=== PATIENT | female | born 1935 | race Caucasian/White ===

== ENCOUNTER 2018-02-12 10:52 | Inpatient (IN) | payer OTHER, MEDICARE ==
--- NOTE | 2018-02-12 09:05 | GHP ---
[f rep st] HISTORY AND PHYSICAL DATE OF ADMISSION: 02/12/2018 CURRENT COMPLAINT: Left knee pain. HISTORY OF PRESENT ILLNESS: Ms. Tobar is an 83-year-old female who had previously undergone a left total knee replacement approximately a week and half ago. Subsequent x-rays revealed a distal femur fracture. She wishes to have surgery in order to resolve the problem. ALLERGIES: She is allergic to latex. CURRENT MEDICATIONS: 1. Aspirin. 2. Lasix. 3. Lisinopril. 4. Meloxicam. 5. Metoprolol. 6. Multivitamins. PRIOR MEDICAL PROBLEMS: 1. Arthritis. 2. Congestive heart failure. 3. High blood pressure. 4. Hyperglycemia. 5. Meniere disease. 6. Obesity. PHYSICAL EXAMINATION: HEENT: The patient's pupils are equal, round, and reactive to light. CHEST: Clear to auscultation. HEART: Regular rate and rhythm. ABDOMEN: Soft and nontender. She has rocky n with any type of motion to the left knee. X-ray exam reveals a bicondylar fracture of the distal femur, with loosening of the femoral component of the total knee. ASSESSMENT AND PLAN: Patient is status post left distal femur periprosthetic fracture. Our plan is to take her to the operating room to undergo an open reduction, internal fixation of her distal femur with replacement of her femoral component. /[id number]/MODL
[2018-02-12] MEDS ORDERED: PREGABALIN 150 MG CAP PO ONE ×2 (11:06→11:30)
[2018-02-12] MEDS ORDERED: ROPIVACAINE 0.2% 80 MG, EPINEPHrine 0.2 MG, KETOROLAC TROMETHAMINE 30 MG, morphINE 10 M... IU ONE (11:06)
[2018-02-12] MEDS ORDERED: ACETAMINOPHEN 500 MG TAB PO ONE ×2 (11:06→11:30)
[2018-02-12] MEDS ORDERED: TRANEXAMIC ACID 3,000 MG in NS (SYRINGE) 50 ML IRR ONE (11:06)
[2018-02-12] MEDS ORDERED: ceFAZolin 2 GM/DEXTROSE 100 ML IV ONE (11:06)
[2018-02-12] MEDS ORDERED: ceFAZolin 3 GM in D5W 100 ML IV ONE (11:30)
[2018-02-12] MEDS ORDERED: LR 1,000 ML IV ONE (12:04)
--- NOTE | 2018-02-12 12:25 | CPEKG ---
Heart Rate: 100 RR Interval: 600 QRSD Interval: 90 QT Interval: 348 QTC Interval: 449 QRS [place]: 96 T Wave [place]: 59 EKG Severity - ABNORMAL ECG - EKG Impression: ATRIAL FIBRILLATION, V-RATE 83-121 EKG Impression: RIGHT AXIS DEVIATION EKG Impression: LOW VOLTAGE THROUGHOUT EKG Impression: Agree with above Electronically Signed By: Onur Barnhart 12-Feb-2018 12:30:57
[2018-02-12] MEDS ORDERED: ONDANSETRON 4 MG/2 ML VIAL IVP PRN ×2 (12:37→18:47)
[2018-02-12] MEDS ORDERED: ONDANSETRON DISINTEGRATING 4 MG TAB PO PRN (12:37)
[2018-02-12] MEDS ORDERED: ACETAMINOPHEN 325 MG TAB PO PRN (12:37)
[2018-02-12] MEDS ORDERED: traMADol 50 MG TAB PO PRN (12:39)
[2018-02-12] MEDS ORDERED: MAGNESIUM HYDROXIDE 30 ML UDCUP PO PRN (12:39)
[2018-02-12] MEDS ORDERED: SIMETHICONE 80 MG TAB CHEW PO PRN (12:39)
[2018-02-12 13:00] LABS: INR 1.03 (0.83-1.16); PROTIME(PATIENT) 13.7 SEC (12.0-15.0)
[2018-02-12 13:20] LABS: PLATELET COUNT 348 10^3/uL (150-400)
[2018-02-12] MEDS ORDERED: POLYMYXIN B SULFATE 500,000 UNIT/10 ML SYR IRR ONE (13:26)
--- NOTE | 2018-02-12 13:31 | GHP ---
[f rep st] HISTORY AND PHYSICAL DATE OF ADMISSION: 02/12/2018 The patient is an 83-year-old female with a history of hypertension, obesity, likely atrial fibrillation and HAO, who underwent a total knee arthroplasty on February 01 in [place], [place] where she lives. She has been hospitalized since then. At some point she sustained a fall and was unable to bear weight. She was found to have a film on the showed a transverse distal femur fracture proximal to the knee arthroplasty and she is transferred today for operative repair. I am asked to see her in preoperative consultation. Notably, the patient received 2 mg of IV Ativan prior to transfer. When I speak to the patient, she is confused but alert and conversant. She denies current chest pain or a history of chest pain. She states there were no postoperative cardiopulmonary complications following her knee arthroplasty. She denies a history of VTE. She has not had fever, chills, or cough. She states that it sounds like atrial fibrillation is not a new thing for her, although again, her level of moderate confusion does suggest there could be some issues with this statement. She denies a history of exertional chest pain or lower extremity edema. REVIEW OF SYSTEMS: A complete 10-point review of systems conducted negative except as noted in the HPI. PAST MEDICAL HISTORY: Hypertension, osteoarthritis, obstructive sleep apnea, morbid obesity, likely atrial fibrillation. ALLERGIES: Latex, natural rubber. MEDICATIONS ON TRANSFER: Tylenol, aspirin, ibuprofen, lisinopril, oxycodone, aspirin, furosemide, milk of magnesia, Toprol-XL 25, simethicone, tramadol. SOCIAL HISTORY: Lives in [place], [place]. Nonsmoker. FAMILY HISTORY: Parents . PHYSICAL EXAM: VITAL SIGNS: Pulse 100, blood pressure 140/76, breathing 18 times a minute. 98% on 2 L. GENERAL: No acute distress. Confused. HEENT: Sclerae anicteric. Oropharynx clear. Mucous membranes moist. NECK: Supple without lymphadenopathy or JVD. LUNGS: Clear to auscultation anterolaterally. A posterior exam was not done. HEART: S1, S2. Irregularly irregular without systolic murmur. ABDOMEN: Nontender, nondistended. EXTREMITIES: Her left lower extremity is in a knee immobilizer, I did not undo it. There is a significant amount of ecchymoses around her ankle. Her right lower extremity shows trace edema bilaterally. Calves are nontender. SKIN: Without rash other than the bruising I mentioned. NEUROLOGIC: Nonfocal. EKG interpreted by me shows AFib at about 100 with normal axis and intervals. There are no ST or T-wave changes. There is no prior for comparison. I have discussed the case with Dr. Rc Thibodeaux and Dr. Janet Rinaldi. ASSESSMENT AND PLAN: An 83-year-old female with a periprosthetic femur fracture with urgent need for operative repair. 1. Preoperative cardiac evaluation. The patient does not have an active cardiac condition. I believe that this is likely old atrial fibrillation. Her rate is controlled on her current dose of beta arin. Her EKG without ST or T -wave changes. She does not note chest pain. a. I think the patient may proceed toward the operating room without further workup or intervention. I believe her risk is moderate. b. I think the patient is possibly a bit volume overloaded and would be judicious with intravenous fluids in the operating room, but certainly she needs to be supported hemodynamically. 2. Periprosthetic fracture. This patient is high risk for venous thromboembolism. Recommend starting low-molecular heparin venous thromboembolism prophylaxis. 3. Atrial fibrillation. I will attempt to gain greater records during this hospitalization to figure out if the patient is actually in atrial fibrillation. I would warrant given her age and hypertension that she likely would be a candidate for systemic anticoagulation for stroke prophylaxis. For now, we will continue with low molecular heparin and her beta arin. I have also ordered an echocardiogram. 4. Obstructive sleep apnea. I will provide her with at least nocturnal oxygen and continuous positive airway pressure if available. 5. Delirium. Would use caution with large doses of benzodiazepines, would actually not give her benzodiazepines at all. 6. Pain. I will defer pain management postoperatively to Orthopedics at least tonight, and we will see her tomorrow. DISPOSITION: Inpatient status. Hospital Medicine will assume the care of this patient along with Orthopedics as a inside solar sales consultant. /[id number]/MODL MTDD
--- NOTE | 2018-02-12 14:16 | PDANEPAE ---
ANE History of Present Illness Patient presents for L knee TKA revision ANE Past Medical History - Cardiovascular History Hx Hypertension: Yes Hx Arrhythmias: Yes Hx Chest Pain: Yes Hx Coronary Artery / Peripheral Vascular Disease: Yes Hx CHF / Valvular Disease: Yes Hx Palpitations: No - Pulmonary History Hx COPD: No Hx Asthma/Reactive Airway Disease: No Hx Recent Upper Respiratory Infection: No Hx Oxygen in Use at Home: Yes O2 in Use at Home (L/minute): 3 Hx Sleep Apnea: Yes Pulmonary History Comment: uses o2 with cpap - Neurologic History Hx Cerebrovascular Accident: No Hx Seizures: No Hx Dementia: No - Endocrine History Hx Diabetes: Yes - Renal History Hx Renal Disorders: No - Liver History Hx Hepatic Disorders: No - Neurological & Psychiatric Hx Hx Neurological and Psychiatric Disorders: No - Cancer History Hx Cancer: No - Congenital Disorder History Hx Congenital Disorders: No - GI History Hx Gastrointestinal Disorders: No - Other Health History Other Health History: poor historian - Chronic Pain History Chronic Pain: No - Surgical History Prior Surgeries: left tka 02/01/18. poor historian. tonsilectomy as child ANE Review of Systems Review of Systems: - Exercise capacity METS (RN): 1 METS ANE Patient History - Allergies Allergies/Adverse Reactions: Latex, Natural Rubber Allergy (Verified 02/12/18 08:58) - Home Medications Home Medications: Acetaminophen [Tylenol 325mg (*)] 650 mg PO Q4HRS PRN 02/12/18 [Last Taken Unknown] Aspirin [Aspirin 325 mg (*)] 325 mg PO DAILY 02/12/18 [Last Taken Unknown] Docusate Sodium [Colace 100 MG (*)] 100 mg PO BID 02/12/18 [Last Taken Unknown] Furosemide [Lasix 40 MG (*)] 40 mg PO DAILY 02/12/18 [Last Taken Unknown] Ibuprofen [Motrin (*)] 600 mg PO Q6HRS PRN 02/12/18 [Last Taken Unknown] Lisinopril [Zestril 40 mg (*)] 40 mg PO DAILY 02/12/18 [Last Taken Unknown] Magnesium Hydroxide [Milk of Magnesia] 30 ml PO BID PRN 02/12/18 [Last Taken Unknown] Metoprolol Succinate Xr [Toprol Xl 25 mg (*)] 25 mg PO DAILY 02/12/18 [Last Taken Unknown] Simethicone [Gas Relief] 80 mg PO QID PRN 02/12/18 [Last Taken Unknown] oxyCODONE IR [Oxycodone Ir (*)] 5 mg PO Q6HRS PRN 02/12/18 [Last Taken Unknown] traMADol [Ultram 50 mg (*)] 50 mg PO Q6HRS PRN 02/12/18 [Last Taken Unknown] - NPO status NPO Status: no food or drink >8 hours NPO Since - Liquids (Date): 02/12/18 NPO Since - Liquids (Time): 00:00 NPO Since - Solids (Date): 02/12/18 NPO Since - Solids (Time): 00:00 - Smoking Hx Smoking Status: Never smoked ANE Labs/Vital Signs - Labs Result Diagrams: 02/12/18 12:56 02/12/18 12:22 - Vital Signs Blood Pressure: 156/70 Heart Rate: 108 Respiratory Rate: 20 O2 Sat (%): 97 Height: 172.72 cm Weight: 127 kg ANE Physical Exam - Airway Neck exam: decreased ROM Mallampati Score: Unable to assesss Mouth exam: dentures - Pulmonary Pulmonary: reduced air movement, bronchial breath sounds - Cardiovascular Cardiovascular: irregularly irregular - ASA Status ASA Status: IV ANE Anesthesia Plan Anesthesia Plan: general endotracheal anesthesia Lines/Monitors: arterial line Specialized Airway: video laryngoscope (RBA discussed, consents obtained from son (ROA) via telephone)
[2018-02-12] MEDS ORDERED: fentaNYL 100 MCG/2 ML INJ ONE ×2 (14:31→19:49)
[2018-02-12] MEDS ORDERED: DEXAMETHASONE 4 MG/ML VIAL ONE ×2 (14:32→16:01)
[2018-02-12] MEDS ORDERED: ONDANSETRON 4 MG/2 ML VIAL ONE (14:32)
[2018-02-12] MEDS ORDERED: PROPOFOL 200 MG/20 ML VIAL ONE (14:32)
[2018-02-12] MEDS ORDERED: CALCIUM CHLORIDE 1 GM/10 ML INJ ONE (14:49)
[2018-02-12] MEDS ORDERED: THROMBIN (BOVINE) 5,000 UNIT VIAL TP ONE (14:49)
--- NOTE | 2018-02-12 15:02 | PDHPUP ---
History & Physical Update H&P update statement: This history and physical update is based on an assessment of the patient which was completed after admission or registration (within 24 hours), but prior to the surgery/procedure. H&P update: H&P reviewed & patient examined, no change in patient's condition since H&P completed
[2018-02-12] MEDS ORDERED: ROCURONIUM 50 MG/5 ML VIAL ONE ×2 (16:01→16:23)
[2018-02-12] MEDS ORDERED: HYDROmorphONE/DILAUDID 2 MG/ML INJ ONE (16:01)
[2018-02-12] MEDS ORDERED: METOPROLOL TARTRATE 5 MG/5 ML INJ ONE (16:02)
[2018-02-12 16:16] LABS: PLATELET COUNT 347 10^3/uL (150-400)
--- NOTE | 2018-02-12 16:19 | PDMN ---
Medical Necessity Medical necessity: [facility] IP only surgery; cpt 02945 Femur Fx ORIF
--- NOTE | 2018-02-12 16:27 | ECHO ---
[email or web address] [address] Main: [phone] Fax: Transthoracic Echocardiogram Name: BABAR BASS MR#: [id number] Study Date: 02/12/2018 Study Time: 02:37 PM Date of : 1935 Age: 83 year(s) Height: 172.7 cm (68 in.) Weight: 126.55 kg (279 lb.) BSA: 2.35 m2 Gender: Female Examination: Echo Indication: Atrial Fibrillation Image Quality: Technically Difficult Contrast: Requested by: Corby Gabriel BP: 95 mmHg/73 mmHg Heart Rate: Rhythm: Indication: Atrial Fibrillation Procedure Staff Miniature Set Constructor: Roxie Askew RDCS Reading Physician: Edgar Browning MD Requesting Provider: Conclusions: Normal size left ventricle. No LV hypertrophy. Normal global systolic LV function. The ejection fraction is estimated to be 60-65 %. Mildly dilated right ventricle. The left atrium is mildly dilated. The right atrium is mildly dilated. Moderate mitral valve leaflet calcification is present. Mild to moderate mitral regurgitation. Trivial aortic valve regurgitation. Moderate to severe tricuspid valve regurgitation. RVSP is 44mmHG.. "D" shaped interventricular septum consistent with RV pressure/volume overlaod. Measurements: Chambers Valvular Assessment AV/MV Valvular Assessment TV/PV Normal Normal Normal Name Value Range Name Value Range Name Value Range Ao Leora (MM): 3.1 cm (2.2 cm-3.7 AV meanP mmHg ( - ) TR Vmax: 3.12 mm/s ( - ) cm) MV E Vmax: 1.23 m/s ( - ) TR PGmax: 39 mmHg ( - ) IVSd (2D): 1.0 cm (0.6 cm-1.1 syst. PAP: 44 mmHg ( - ) cm) LVDd (2D): 4.9 cm (3.9 cm-5.3 cm) LVDs (2D): 2.6 cm (2.1 cm-4 cm) LVPWd (2D): 1.1 cm ( - ) LVEF (2D): 78 (>=54 %) EF Range: 60-65 % Patient: BABAR BASS Study Date: 02/12/2018 Page 1 of 2 02:37 PM Continued Measurements: Valvular Assessment TV/PV Name Value CVP (est.): 5 mmHg Findings: Left Ventricle: Normal size left ventricle. No LV hypertrophy. Normal global systolic LV function. The ejection fraction is estimated to be 60-65 %. No regional wall motion abnormality. Right Ventricle: Mildly dilated right ventricle. Left Atrium: The left atrium is mildly dilated. Right Atrium: The right atrium is mildly dilated. Mitral Valve: Moderate mitral valve leaflet calcification is present. Mild to moderate mitral regurgitation. Aortic Valve: The aortic valve is normal in appearance and function. Trivial aortic valve regurgitation. Tricuspid Valve: The tricuspid valve is normal in appearance and function. Moderate to severe tricuspid valve regurgitation. The pulmonary artery pressure is mildly increased. RVSP is 44mmHG.. Pulmonic Valve: The pulmonic valve is normal in appearance and function. Aorta: The aorta is normal. Pericardium: No pericardial effusion. There is pericardial fat. Exam Comments: Echo done in pre op (heading to surgery at the time).. (No Signature Object) Patient: BABAR BASS Study Date: 02/12/2018 Page 2 of 2 02:37 PM D:_[id number]
[2018-02-12 17:39] LABS: PLATELET COUNT 338 10^3/uL (150-400)
[2018-02-12 17:51] LABS: INR 1.11 (0.83-1.16); PROTIME(PATIENT) 14.5 SEC (12.0-15.0)
[2018-02-12] MEDS ORDERED: ROPIVACAINE HCL 150 MG/30 ML INJ ONE (17:53)
[2018-02-12] MEDS ORDERED: ALBUMIN 5% 250 ML BOTTLE IV ONE (18:19)
[2018-02-12] MEDS ORDERED: BACITRACIN 50,000 UNITS/10 ML SYR IRR ONE (18:45)
[2018-02-12] MEDS ORDERED: SUGAMMADEX SODIUM 200 MG/2 ML VIAL IVP ONE (18:46)
[2018-02-12] MEDS ORDERED: LR 500 ML IV PRN (18:47)
[2018-02-12] MEDS ORDERED: NALOXONE HCL 0.4 MG/ML INJ IVP PRN (18:47)
[2018-02-12 18:52] LABS: INR 1.25 (0.83-1.16); PROTIME(PATIENT) 15.9 SEC (12.0-15.0)
[2018-02-12] MEDS ORDERED: ceFAZolin 1 GM VIAL ONE (18:52)
[2018-02-12 19:13] LABS: PLATELET COUNT 259 10^3/uL (150-400)
[2018-02-12] MEDS ORDERED: CYCLOBENZAPRINE 10 MG TAB PO PRN (19:17)
[2018-02-12] MEDS ORDERED: PROMETHAZINE HCL 25 MG/ML INJ IVP PRN (19:17)
[2018-02-12] MEDS ORDERED: oxyCODONE IR 5 MG TAB PO PRN (19:17)
[2018-02-12] MEDS ORDERED: DIPHENOXYLATE/ATROPINE LOMOTIL 1 TAB PO PRN (19:17)
[2018-02-12] MEDS ORDERED: PROMETHAZINE HCL 25 MG SUPPR PR PRN (19:17)
[2018-02-12] MEDS ORDERED: METOCLOPRAMIDE 10 MG/2 ML VIAL IVP PRN (19:17)
[2018-02-12] MEDS ORDERED: diphenhydrAMINE 25 MG CAP PO PRN (19:17)
[2018-02-12] MEDS ORDERED: POLYETHYLENE GLYCOL 3350 17 GM PKT PO PRN (19:17)
[2018-02-12] MEDS ORDERED: LACTULOSE 20 GM/30 ML UDCUP PO PRN (19:17)
[2018-02-12] MEDS ORDERED: TEMAZEPAM 15 MG CAP PO PRN (19:17)
[2018-02-12] MEDS ORDERED: BISACODYL 10 MG SUPP PR PRN (19:17)
--- NOTE | 2018-02-12 19:17 | POSTOPPROG ---
Post Op Note Date of Operation: 02/12/18 Surgeon: Janet Rinaldi Senior Business Development Analyst: [employer]train Anesthesia: GET(General Endotracheal), Other (Specify) Pre-op Diagnosis: l knee periprosthetic fracture with patellar tendon avulsion Procedure: l knee MARCO ANTONIO with distal femur replacement and patellar tendon repair Inf/Abcess present in the surg proc area at time of surgery?: No Depth: Deep Incisional (Fascial) EBL: 500-1000
[2018-02-12] MEDS ORDERED: LR 1,000 ML IV SCH (19:30)
--- NOTE | 2018-02-12 19:42 | POSTANESTH ---
Post Anesthetic Evaluation Cardiovascular Status: Similar to Pre-Op Cond Respiratory Status: Tx Decrease in SpO2 Level of Consciousness/Mental Status: Alert and Oriented, Other, See Comment Pain Control: Adequate, Prn Tx Ordered Nausea/Vomiting Control: Adequate, Prn Tx Ordered Complications Possibly Related to Anesthesia: None Noted (Confused in PACU as she was in Pre-op. Administering CPAP in PACU to recruit lungs.)
[2018-02-12] MEDS: fentaNYL 100 MCG/2 ML INJ IVP PRN ×2 (19:52→20:10)
--- NOTE | 2018-02-12 20:08 | GOP ---
[f rep st] OPERATIVE REPORT DATE OF OPERATION: 02/12/2018 SURGEON: Janet Rinaldi MD ANTENNA DESIGN ENGINEER: Dean Lance, CSFA, LSA, whose presence was medically necessary. ANESTHESIA: Endotracheal intubation plus femoral nerve block per surgeon's request. PREOPERATIVE DIAGNOSIS: Distal right femur periprosthetic fracture. POSTOPERATIVE DIAGNOSIS: Distal right femur periprosthetic fracture with patellar tendon avulsion. PROCEDURE PERFORMED: Right knee removal of hardware with hinged distal femoral replacement as well a s a patellar tendon repair. FINDINGS: INDICATIONS: This is an 83-year-old female, who had previously undergone a left total knee replaceme nt approximately a week and a half ago. Had difficulty with rehab, complained of pain into her dista l thigh. She underwent an x-ray and was noted to have a fracture through both of the femoral condyles as well as displacement of the femoral component. It was decided to bring her to the operating room in order to facilitate repair. DESCRIPTION OF PROCEDURE: The patient brought to the operating room after the left side had been huong ntified as the correct side by the patient, nurse and physician. Once in the operating room, she was placed under general anesthesia using endotracheal intubation. Once asleep, tourniquet was placed ar ound the upper portion of the left thigh, and the left lower extremity sterilely prepped and draped i n usual fashion with /solution. Once prepped and draped, the limb was exsanguinated, tourniquet in flated to 250 mmHg. The victorina were removed from the skin, the skin was then opened and dissected w ith sutures removed. Dissection down upon the extensor mechanism revealed an opening into the knee c avity suggesting some injury to the extensor mechanism. Further exploration revealed the patellar te ndon had avulsed off the tibial tubercle. The suture was removed from around the extensor mechanism. Patella was everted in order to gain access into the knee. The bony fragments were noted. The fem oral component was noted to be loose against the bone. The polyethylene liner associated with total k nee replacement was removed and the femoral component was removed, noted to have a very small amount of cortical bone associated with the medial and lateral femoral condyles with a great deal of comminu tion at the intermedullary portion of the distal femur. It was decided at that point to abandon open reduction internal fixation and do a distal femoral replacement instead. Therefore measurements wer e taken in order to gain fresh bone at the distal portion of the femur. The bone was cut and an area 76 mm from where the articular surface of the femur would have been, an oscillating saw was used to remove that portion of the femur and the bone was removed. The quality of the bone was noted to be e xtremely poor. Once removed, reamers were used up to a 15 mm into the intramedullary cavity of the f emur. Trial reduction was performed, noted to have good length and good stability of the femoral com ponent. Attention turned to the tibia and the tibial component was removed. Once removed, tibial cu tting guide was put in place and an intramedullary reamer was passed into the tibia and then a keel p unch passed through a guide. Once in place, a trial reduction was performed, with the trial femur, t ibia, and hinged trial. The patient was noted able to achieve full extension and good stability. Th erefore, the trials were all removed. The components were able to be put together on the back table. Cement was mixed as the bone was being thoroughly irrigated with pulsatile lavage. Once the cement was doughy, it was placed on the proximal portion of the tibia with a size small tibial base plate a ttached to a 40 mm stem stitch bonding machine tender helper. This was placed into the bone with excess bone removed using [place] elevator. Cement was then placed in the femoral canal with a standard left 65 mm distal femoral com ponent from [employer], put in place with a 15 mm x 127 mm stem put into place. Placed in the bone, its external rotation was set based on markers that have been placed during the trial. Once the cement had hardened, a 10 mm tibial insert was put into place and then the hinged modular rotating component was put into place as well as the neutral bumper and hinge axle. Once in place, the knee was able t o achieve full extension. Had good varus valgus stability. The shelf of the medial and lateral femo ral condyles were left alone free-floating on either side of the femoral component. The wound was th oroughly irrigated with antibiotic solution and then irrigated with a Betadine solution. Joint cockt ail was injected around the posterior capsule and the periosteum. Tourniquet was released at 120 min utes. Bleeding was controlled using electrocautery. The extensor mechanism was closed using 0 Ethib ond suture in a breqqm-yy-wydae type stitch to close the extensor mechanism until reaching the patell ar tendon. The patellar tendon sheath was closed with #2 FiberWire, woven in 2 separate strands into the medial and lateral portion of the patellar tendon using a locking whipstitch. Once completed, t he tibial tubercle was roughened. Two sets of 5.5 mm Arthrex screw-in anchors were put into place. With the suture from the anchors and the suture from the locking whipstitch combined in order to pull , place tension on the patellar tendon and apply it onto the bone. Tranexamic acid was irrigated int o the joint as well as the surface. Plasma gel was placed on the area around the patellar tendon rep air. 0 Vicryl suture was used to close the subcutaneous layers, and 0 Prolene suture was used in a v ertical mattress type stitch in order to keep the skin closed. Once completed the wound was dressed with Xeroform, 4 x 4, Kerlix. Leg was completely undraped in the operating room, tourniquet removed from the thigh and an Robles wrap placed around the knee. The patient was then woken up, extubated, transferred onto a stretcher, and sent to recovery room in good condition. TOURNIQUET TIME: 120 minutes. /[id number]/MODL
[2018-02-12] MEDS: DOCUSATE SODIUM 100 MG CAP PO SCH (22:15)
[2018-02-12] MEDS: ACETAMINOPHEN 325 MG TAB PO SCH (22:16)
[2018-02-12] MEDS: SENNOSIDES/DOCUSATE SODIUM TAB PO SCH (22:16)
[2018-02-12] MEDS: FAMOTIDINE 20 MG TAB PO SCH (22:16)
[2018-02-12] MEDS: KETOROLAC 15 MG/1 ML SDV IVP SCH (23:57)
[2018-02-12] MEDS: ceFAZolin 2 GM/DEXTROSE 100 ML IV SCH (23:58)
[2018-02-12] MEDS: traMADol 50 MG TAB PO SCH (23:59)
[2018-02-13 05:53] LABS: PLATELET COUNT 241 10^3/uL (150-400)
[2018-02-13] MEDS: traMADol 50 MG TAB PO SCH ×4 (06:16→23:59)
[2018-02-13] MEDS: ACETAMINOPHEN 325 MG TAB PO SCH ×3 (06:20→17:30)
[2018-02-13] MEDS: KETOROLAC 15 MG/1 ML SDV IVP SCH ×3 (06:20→17:31)
[2018-02-13] MEDS ORDERED: oxyCODONE IR 5 MG TAB PO PRN (08:28)
[2018-02-13] MEDS ORDERED: METOPROLOL SUCCINATE XR 25 MG TAB PO SCH ×2 (09:00)
[2018-02-13] MEDS ORDERED: RIVAROXABAN 10 MG TAB PO SCH (09:00)
[2018-02-13] MEDS ORDERED: IOPAMIDOL (ISOVUE 370) 100 ML BTL IV ONE (09:49)
[2018-02-13] MEDS: SENNOSIDES/DOCUSATE SODIUM TAB PO SCH ×2 (10:00→20:18)
[2018-02-13] MEDS: ENOXAPARIN 40 MG/0.4 ML SYR SC SCH (10:00)
[2018-02-13] MEDS: FAMOTIDINE 20 MG TAB PO SCH ×2 (10:00→20:18)
[2018-02-13] MEDS: DOCUSATE SODIUM 100 MG CAP PO SCH ×2 (10:00→20:18)
[2018-02-13] MEDS: FUROSEMIDE 40 MG TAB PO SCH (10:00)
[2018-02-13] MEDS ORDERED: CEPACOL LOZENGE PO PRN (10:12)
[2018-02-13] MEDS ORDERED: CALCIUM CARBONATE 500 MG CHEWABLE TAB PO PRN (10:12)
[2018-02-13] MEDS: METOPROLOL SUCCINATE XR 25 MG TAB PO SCH (11:17)
--- NOTE | 2018-02-13 14:04 | SOAPPROG ---
SOAP Progress Note Assessment/Plan: Assessment: Plan: Subjective: states she's sore but better than pre-op dressing C&D with foot grossly NVI post-op xrays look good cont pain meds/abx PWB on LLE but no bending of the knee at all Objective: Vital Signs Temp Pulse Resp BP Pulse Ox 36.6 C 100 20 99/52 L 96 02/13/18 12:00 02/13/18 12:00 02/13/18 12:00 02/13/18 12:00 02/13/18 12:00 Laboratory Results 02/13/18 05:45 02/13/18 05:45 02/12/18 02/13/18 02/14/18 05:59 05:59 05:59 Intake Total 2270 640 Output Total 350 Balance 1920 640 PT 15.9 SEC (12.0-15.0) H 02/12/18 18:30 INR 1.25 (0.83-1.16) H 02/12/18 18:30 ICD10 Worksheet Patient Problems: Problems Problem Status Onset Atrial fibrillation Acute Effie-prosthetic femoral shaft fracture Acute - ICD10 Problem Qualifiers (1) Effie-prosthetic femoral shaft fracture
--- NOTE | 2018-02-13 15:54 | HOSPPROG ---
Hospitalist Progress Note Assessment/Plan: Assessment: 83-year-old female presents for fracture adjacent to prosthesis of recently repaired knee complicated by atrial fibrillation with acute rapid ventricular response Plan: 1. Atrial fibrillation. Acute rapid ventricular response on presentation, potentially unreliable history provided by patient and further outside records need to be obtained determine the chronicity of her AFib -continue on metoprolol succinate 25 daily, monitor rate on telemetry -hold on systemic anticoagulation immediately postoperatively, will be discharged on full-dose systemic anticoagulation if she does not experience any postoperative bleeding 2. Suspected chronic diastolic congestive heart failure. Chest x-ray demonstrating some interstitial markings indicative of pulmonary vascular congestion and cardiomegaly (personally interpreted), but not overt CHF -echocardiogram demonstrating ejection fraction 60-65%, [id number] mitral regurgitation, RVSP of 44 -continue home dosage of Lasix -holding RAMÍREZ-inhibitor given marginal blood pressures -obtaining CT angiogram to ensure that patient's elevated RVSP is not secondary to a PE 3. Acute blood loss anemia. Decline in hemoglobin to 7.3 with preoperative hemoglobin greater than 9, potential hemodynamic instability with a systolic blood pressure in 70s postop which responded to volume expanding normal saline -discussed with Dr. Janet Rinaldi, he and I both agree to transfuse the patient 1 PRBC at this time, repeat hemoglobin level in a.m. 4. Encephalopathy. Unclear whether this is acute versus chronic, unclear baseline, with patient presently disoriented, providing nonlinear responses to straightforward questions, impaired memory with inability to communicate recent events and what led her to her original hospitalization -will order outside records from PCP office as well as history and physical from the hospital where she originally presented, to help gain a better understanding of this patient's cognitive baseline -anticipate that regardless of whether this is acute or chronic, it will impact her overall ability to engage with therapy and the patient will most likely be dependent in ADLs following this episode of care, requiring correction facility 5. Sore throat. Most likely secondary to recent intubation, lozenges, Tums p.r.n. 6. Femur fracture. Postop day 1 status post hinge distal femur replacement with patellar tendon repair -weight-bearing and surgical site recommendations per Dr. Rinaldi -she will be high risk for DVT and I would recommend full systemic anticoagulation for DVT prophylaxis after we established the patient is not experiencing a postoperative bleeding 7. Acute hyponatremia. Clinically relevant, most likely secondary to poor oral intake, unclear whether it is contributing to the patient's altered mentation -continue monitor serum sodium level, continue normal saline 8. Morbid obesity. Increases patient's risk of worsening morbidity and/or mortality with BMI of 42 Diet. Regular Prophylaxis. High risk patient, Lovenox 40 Code. Full Disposition. Anticipated discharge uncertain this time, anticipate patient will require correction facility placement at discharge. Subjective: Patient reports some sore throat, she does not know why she is in the hospital Objective: Vital Signs Temp Pulse Resp BP Pulse Ox 36.7 C 80 17 101/48 L 93 02/13/18 15:35 02/13/18 15:35 02/13/18 15:35 02/13/18 15:35 02/13/18 15:35 Laboratory Results 02/13/18 05:45 02/13/18 05:45 02/12/18 02/13/18 02/14/18 05:59 05:59 05:59 Intake Total 2270 640 Output Total 350 Balance 1920 640 PT 15.9 SEC (12.0-15.0) H 02/12/18 18:30 INR 1.25 (0.83-1.16) H 02/12/18 18:30 - Physical Exam Constitutional: no apparent distress, not in pain, obese, uncomfortable Cardiovascular: systolic murmur (2/6 at the sternum), irregularly irregular, edema (2+ left lower extremity), No tachycardia Respiratory: inspiratory crackles (Bilateral bases), No expiratory wheeze, No bronchial breath sounds, No respiratory distress Gastrointestinal: normoactive bowel sounds, soft, non-tender abdomen, no palpable masses, No distension Neurologic: sensation intact bilaterally, No AAOx3 (Alert awake oriented times [address] or time), No weakness (Distal motor 5/5 bilateral lower extremities), No facial droop Psychiatric: not anxious, encephalopathic, poor insight, poor memory, No agitated ICD10 Worksheet Patient Problems: Problems Problem Status Onset Atrial fibrillation Acute
[2018-02-13] MEDS ORDERED: HYDROmorphONE/DILAUDID 1 MG/ML INJ IVP SCH (17:15)
[2018-02-13] MEDS ORDERED: LORazepam 2 MG/ML INJ IVP ONE (17:15)
[2018-02-13] MEDS: ceFAZolin 2 GM/DEXTROSE 100 ML IV SCH (18:32)
[2018-02-13] MEDS ORDERED: NS 500 ML IV ONE (20:00)
[2018-02-13] MEDS ORDERED: NS 1,000 ML IV SCH (23:15)
[2018-02-14 01:57] LABS: PLATELET COUNT 218 10^3/uL (150-400)
[2018-02-14] MEDS: ACETAMINOPHEN 325 MG TAB PO SCH ×4 (08:25→17:04)
[2018-02-14] MEDS: traMADol 50 MG TAB PO SCH ×3 (08:26→17:02)
[2018-02-14] MEDS: FAMOTIDINE 20 MG TAB PO SCH ×2 (08:27→21:41)
[2018-02-14] MEDS: DOCUSATE SODIUM 100 MG CAP PO SCH ×2 (08:27→21:41)
[2018-02-14] MEDS: ENOXAPARIN 40 MG/0.4 ML SYR SC SCH (08:27)
[2018-02-14] MEDS: SENNOSIDES/DOCUSATE SODIUM TAB PO SCH ×2 (08:28→21:41)
[2018-02-14] MEDS: FUROSEMIDE 40 MG TAB PO SCH (08:28)
[2018-02-14] MEDS: METOPROLOL SUCCINATE XR 25 MG TAB PO SCH ×2 (08:39→09:42)
[2018-02-14] MEDS ORDERED: LIDOCAINE 2% VISCOUS 15 ML UDCUP PO PRN (09:52)
[2018-02-14] MEDS ORDERED: MAGNESIUM CITRATE 300 ML BOTTLE PO ONE (11:05)
--- NOTE | 2018-02-14 11:22 | ASMTCMCOM ---
CM Note CM Note Notes: 83yr old female admitted after a fall and recent TKA: Transverse distal femur fx proximal to TKA, Encephalopathy, CHF. She has a Hx of HTN, Obesity, Afib, HAO, OA. Patient lives in [place], [place]. Has a son in [place]. Non wt bearing on knee, therapies recommending SNF rehab. Date Signed: 02/14/2018 11:22 AM Electronically Signed By:Aga Meneses LCSW
[2018-02-14] MEDS ORDERED: ALTEPLASE 2 MG VIAL IVP PRN (13:23)
--- NOTE | 2018-02-14 16:28 | ASMTCMCOM ---
CM Note CM Note Notes: Spoke to numerous family members and gave them [facility]. They are thinking that she will return to the Swing Bed Unit at the hospital in [place], [place]. Sent a referral to [facility], Admissions [phone]. Date Signed: 02/14/2018 04:28 PM Electronically Signed By:Aga Meneses LCSW
--- NOTE | 2018-02-14 17:55 | SOAPPROG ---
SOAP Progress Note Assessment/Plan: Assessment: Plan: Subjective: states her leg is more sore today dressings C&D with foot NVI cont pain meds/PT/anti-coags Objective: Vital Signs Temp Pulse Resp BP Pulse Ox 36.8 C 93 14 114/57 L 94 02/14/18 16:00 02/14/18 16:00 02/14/18 16:00 02/14/18 16:00 02/14/18 16:00 Laboratory Results 02/14/18 01:45 02/14/18 04:31 02/13/18 02/14/18 02/15/18 05:59 05:59 05:59 Intake Total 2270 2240 Output Total 622 254 5446 Balance 1920 1790 -1000 PT 15.9 SEC (12.0-15.0) H 02/12/18 18:30 INR 1.25 (0.83-1.16) H 02/12/18 18:30 ICD10 Worksheet Patient Problems: Problems Problem Status Onset Atrial fibrillation Acute Effie-prosthetic femoral shaft fracture Acute - ICD10 Problem Qualifiers (1) Effie-prosthetic femoral shaft fracture
[2018-02-14] MEDS ORDERED: APIXABAN 5 MG TAB PO SCH (18:00)
--- NOTE | 2018-02-14 18:09 | HOSPPROG ---
Hospitalist Progress Note Assessment/Plan: Assessment: 83-year-old female presents for fracture adjacent to prosthesis of recently repaired knee complicated by atrial fibrillation with acute rapid ventricular response, LLL DVT, metabolic acidosis 2/2 hypotension Plan: # DVT. Acute, unclear whether this was POA (following patient's 1st knee surg at [place] vs. 2nd at [facility]) as there was no US on admission or at [facility] -given the significant edema which is likely partially 2/2 lower leg clot, and the high risk of propagation w/ ongoing immobility, recommend treating therapeutically w/ eliquis 5mg bid starting now -rec 5mg as opposed to 10mg given (a) distal to knee (b) patient w/ ongoing hemodynamically significant soft tissue bleeding -stop celebrex # Hypotension. 2/2 combination of blood loss, pain Rx, low PO intake, unlikely sepsis given the rapid improvement w/ minimal IVF support -check BCx -monitor WBC # Metabolic acidosis. 2/2 lactic acid 2/2 hypotension, repeat vLact if recurrent # Atrial fibrillation. Acute rapid ventricular response on presentation, patient reports hx of past Afib, unclear if PAF provoked by surg vs. permanent -continue on metoprolol succinate 25 daily, in rate controlled Afib on tele ( personally interpreted) -starting anticoagulation now 2/2 DVT # Chronic diastolic congestive heart failure. Chest x-ray w/o overt CHF, review of records from [facility] indicate hx of CHF -echocardiogram demonstrating ejection fraction 60-65%, [id number] mitral regurgitation, RVSP of 44 -hold home lasix/ACEi given hypotension # Acute blood loss anemia. Worsening w/ lateral LE ecchymoses, further w/u indicated. Hgb 7.6 despite transfusion, likely ongoing soft tissue bleed post-op -transfuse 2nd unit -d/w Dr. Rinaldi, we agreed to check LLL CT w/o contrast to r/o hematoma -monitor Hgb daily # Encephalopathy. Unclear whether this is acute versus chronic, unclear baseline, with patient presently disoriented, providing nonlinear responses to straightforward questions, impaired memory with inability to communicate recent events and what led her to her original hospitalization -mentation improved today, but unable to confirm her immediate pre- hospitalization mental status, as the records from [facility] do not comment on mentation, and her friend who is at bedside hasn't seen her in approx 3 years ( at which time she was "normal") # Sore throat. Most likely secondary to recent intubation, lozenges, Tums p.r.n. -add viscous lido today PRN # Femur fracture. Postop day 2 status post hinge distal femur replacement with patellar tendon repair -weight-bearing and surgical site recommendations per Dr. Rinaldi -reviewed x-ray reports from [facility], 02/10/18 x-ray indicated new distal transverse fxr # Acute hyponatremia. Clinically relevant, most likely secondary to poor oral intake, unclear whether it is contributing to the patient's altered mentation -continue monitor serum sodium level, continue normal saline # Morbid obesity. Increases patient's risk of worsening morbidity and/or mortality with BMI of 42 Diet. Regular Prophylaxis. High risk patient, Lovenox 40 Code. Full Disposition. Anticipated discharge uncertain this time, anticipate patient will require [facility] facility placement at discharge. Subjective: patient reports increased LLE edema/discomfort today Objective: Vital Signs Temp Pulse Resp BP Pulse Ox 36.8 C 93 14 114/57 L 94 02/14/18 16:00 02/14/18 16:00 02/14/18 16:00 02/14/18 16:00 02/14/18 16:00 Laboratory Results 02/14/18 01:45 02/14/18 04:31 02/13/18 02/14/18 02/15/18 05:59 05:59 05:59 Intake Total 2270 2240 Output Total 878 620 5602 Balance 1920 1790 -1000 PT 15.9 SEC (12.0-15.0) H 02/12/18 18:30 INR 1.25 (0.83-1.16) H 02/12/18 18:30 - Physical Exam Constitutional: no apparent distress, not in pain, chronically ill appearing, obese, No uncomfortable Cardiovascular: systolic murmur (I/ at sternum and apex), irregularly irregular, edema (2+ LLE), No tachycardia Respiratory: reduced air movement (bilat bases), No expiratory wheeze, No inspiratory crackles, No bronchial breath sounds, No respiratory distress Gastrointestinal: normoactive bowel sounds, soft, non-tender abdomen, no palpable masses, No distension Skin: other (ecchymotic lateral LLE from hip to calf w/ soft tissue swelling, mild tenderness, no bleeding from wound site) Neurologic: No AAOx3 (AAOx2 (person and place)) Psychiatric: not anxious, flat affect, poor memory, No agitated ICD10 Worksheet Patient Problems: Problems Problem Status Onset Effie-prosthetic femoral shaft fracture Acute Atrial fibrillation Acute
[2018-02-14] MEDS: APIXABAN 5 MG TAB PO SCH (19:50)
[2018-02-14] MEDS ORDERED: ENOXAPARIN 40 MG/0.4 ML SYR SC SCH (21:00)
[2018-02-15] MEDS: traMADol 50 MG TAB PO SCH ×5 (01:39→17:45)
[2018-02-15] MEDS: ACETAMINOPHEN 325 MG TAB PO SCH ×5 (01:39→17:45)
[2018-02-15 04:56] LABS: PLATELET COUNT 223 10^3/uL (150-400)
[2018-02-15] MEDS: FAMOTIDINE 20 MG TAB PO SCH ×2 (10:10→21:44)
[2018-02-15] MEDS: METOPROLOL SUCCINATE XR 25 MG TAB PO SCH (10:11)
[2018-02-15] MEDS: DOCUSATE SODIUM 100 MG CAP PO SCH ×2 (10:12→21:44)
[2018-02-15] MEDS: SENNOSIDES/DOCUSATE SODIUM TAB PO SCH ×2 (10:12→21:44)
[2018-02-15] MEDS: APIXABAN 5 MG TAB PO SCH ×2 (10:12→21:44)
--- NOTE | 2018-02-15 13:33 | SOAPPROG ---
SOAP Progress Note Assessment/Plan: Assessment: Pt is POD#3 and reports pain has improved. She did have some sanguinous drainage from the incision this AM when she moved from bed to chair. PE: T-scope brace locked in extension in place. Dressing with sanguinous drainage. Dressing removed and incision is well approximated without erythema, warmth, and small amount of sanguinous drainage from the proximal incision. Swelling throughout the left lower extremity. Calf is soft to compression. NV intact LLE. Plan: Dressing changed and new DSD placed. Patient is to remain in T-scope brace locked in extension. PWB LLE. Continue po pain medication and anticoagulant. Plan for discharge to SNF or [facility] inpatient once patient is cleared from hospitalist. 02/15/18 13:29 02/15/18 13:34 Objective: Vital Signs Temp Pulse Resp BP Pulse Ox 36.8 C 82 21 H 131/60 H 97 02/15/18 11:19 02/15/18 11:19 02/15/18 11:19 02/15/18 11:19 02/15/18 11:19 Laboratory Results 02/15/18 04:25 02/15/18 04:25 02/14/18 02/15/18 02/16/18 05:59 05:59 05:59 Intake Total 2240 500 Output Total 450 2475 700 Balance 1790 -1975 -700 PT 15.9 SEC (12.0-15.0) H 02/12/18 18:30 INR 1.25 (0.83-1.16) H 02/12/18 18:30 ICD10 Worksheet Patient Problems: Problems Problem Status Onset Atrial fibrillation Acute Effie-prosthetic femoral shaft fracture Acute Periprosthetic fracture around internal prosthetic left knee joint Acute - ICD10 Problem Qualifiers (1) Periprosthetic fracture around internal prosthetic left knee joint
--- NOTE | 2018-02-15 14:28 | ASMTCMCOM ---
CM Note CM Note Notes: Per hospitalist, pt will be ready for d/c tomorrow. Spoke with Kathryn at [facility] [phone] - the plan is still for pt to return to their SNF swing bed. She will also assist with arranging ambulance transport. She requested clinical info be faxed to [facility] where pt will be admitted. Referral faxed. Date Signed: 02/15/2018 02:27 PM Electronically Signed By:KARL Mendoza
--- NOTE | 2018-02-15 16:53 | HOSPPROG ---
Hospitalist Progress Note Assessment/Plan: Assessment: 83-year-old female presents for fracture adjacent to prosthesis of recently repaired knee complicated by atrial fibrillation with acute rapid ventricular response, LLL DVT Plan: # DVT. Acute, unclear whether this was POA (following patient's 1st knee surg at [place] vs. 2nd at [facility]) as there was no US on admission or at [place] -given the significant edema which is likely partially 2/2 lower leg clot, and the high risk of propagation w/ ongoing immobility, recommend treating therapeutically w/ eliquis 5mg bid -rec 5mg as opposed to 10mg given (a) distal to knee (b) patient w/ ongoing, significant soft tissue bleeding -stopped celebrex # Atrial fibrillation. Acute rapid ventricular response on presentation, patient reports hx of past Afib, unclear if PAF provoked by surg vs. permanent -continue on metoprolol succinate 25 daily -starting anticoagulation now 2/2 DVT # Femur fracture. Postop day 3 status post hinge distal femur replacement with patellar tendon repair -weight-bearing and surgical site recommendations per Dr. Rinaldi -remain in T-scope brace locked in extension -partial weight bearing LLE -d/w Dr. Rinaldi, we agree that discharge tomorrow is appropriate, once rehab bed available in [place] # Chronic diastolic congestive heart failure. Chest x-ray w/o overt CHF, review of records from [facility] indicate hx of CHF -echocardiogram demonstrating ejection fraction 60-65%, [id number] mitral regurgitation, RVSP of 44 -restart lasix, hold ACEi # Acute blood loss anemia. Lateral LE ecchymoses, s/p PRBC 1u -monitor Hgb daily # Hypotension. 2/2 combination of blood loss, pain Rx, low PO intake, unlikely sepsis given the rapid improvement w/ minimal IVF support, PCT normal # Metabolic acidosis. 2/2 lactic acid 2/2 hypotension, repeat vLact if recurrent # Encephalopathy. Acute, initially disoriented, providing nonlinear responses to straightforward questions, impaired memory with inability to communicate recent events and what led her to her original hospitalization, likely 2/2 toxic effects of pain Rx -currently mentating clearly, very hard of hearing # Sore throat. Most likely secondary to recent intubation, lozenges, Tums p.r.n. -added viscous lido today PRN # Acute hyponatremia. Clinically relevant, most likely secondary to poor oral intake, unclear whether it is contributing to the patient's altered mentation -continue monitor serum sodium level, continue normal saline # Morbid obesity. Increases patient's risk of worsening morbidity and/or mortality with BMI of 42 -d/w PT, patient is currently unable to realistically partially weight bear, as she cannot safely stand and support full weight on RLE Diet. Regular Prophylaxis. High risk patient, reannaqujovani 5 bid Code. Full Disposition. Anticipated discharge 02/16 to rehab in [place] High-level medical complexity, high risk for worsening morbidity and/or mortality secondary to the issues outlined above. Subjective: LLE edematous, no diarrhea Objective: Vital Signs Temp Pulse Resp BP Pulse Ox 36.8 C 82 21 H 131/60 H 97 02/15/18 11:19 02/15/18 11:19 02/15/18 11:19 02/15/18 11:19 02/15/18 11:19 Laboratory Results 02/15/18 04:25 02/15/18 04:25 02/14/18 02/15/18 02/16/18 05:59 05:59 05:59 Intake Total 2240 500 Output Total 450 2475 900 Balance 1790 -1975 -900 PT 15.9 SEC (12.0-15.0) H 02/12/18 18:30 INR 1.25 (0.83-1.16) H 02/12/18 18:30 - Physical Exam Constitutional: no apparent distress, not in pain, obese, No uncomfortable Ears, Nose, Mouth, Throat: hard of hearing Cardiovascular: systolic murmur (II/ at sternum), irregularly irregular, edema (2+ LLE), No tachycardia Respiratory: reduced air movement (bilat bases), No expiratory wheeze, No inspiratory crackles, No bronchial breath sounds, No respiratory distress Gastrointestinal: normoactive bowel sounds, soft, non-tender abdomen, no palpable masses, No distension Skin: other (ecchymoses LLE w/o blanching, soft tissue edema, no tenderness, bandaged) Psychiatric: interacting appropriately, not anxious, not encephalopathic, thought process linear ICD10 Worksheet Patient Problems: Problems Problem Status Onset Effie-prosthetic femoral shaft fracture Acute Atrial fibrillation Acute
[2018-02-16] MEDS: traMADol 50 MG TAB PO SCH ×4 (00:28→17:45)
[2018-02-16] MEDS: ACETAMINOPHEN 325 MG TAB PO SCH ×4 (00:30→17:43)
[2018-02-16] MEDS: FAMOTIDINE 20 MG TAB PO SCH ×2 (09:14→20:16)
[2018-02-16] MEDS: METOPROLOL SUCCINATE XR 25 MG TAB PO SCH (09:14)
[2018-02-16] MEDS: APIXABAN 5 MG TAB PO SCH ×2 (09:14→20:16)
[2018-02-16] MEDS: DOCUSATE SODIUM 100 MG CAP PO SCH ×2 (09:23→20:34)
[2018-02-16] MEDS: SENNOSIDES/DOCUSATE SODIUM TAB PO SCH ×2 (09:24→20:34)
[2018-02-16] MEDS: TAPENTADOL HCL 50 MG TAB PO PRN ×3 (09:29→22:47)
--- NOTE | 2018-02-16 09:52 | HOSPPROG ---
Hospitalist Progress Note Assessment/Plan: Patient is an 83-year-old female presents for fracture adjacent to prosthesis of recently repaired knee complicated by atrial fibrillation with acute rapid ventricular response, LLL DVT. Today is my first encounter with the patient, chart reviewed. # DVT. Acute, unclear whether this was POA -patient had his first knee surgery in [place] and 2nd one at [facility] -Eliquis 5 mg bid -not started on 10 mg dosing due to tissue bleeding -swelling is quite significant/ xiao hose applied, elevation # Atrial fibrillation w RVR on admission -metoprolol and on oral anticoagulation -starting anticoagulation now 2/2 DVT # Femur fracture -Postop day 4 status post hinge distal femur replacement with patellar tendon repair -Dr Rinaldi will be seeing her in the OP setting -remain in T-scope brace locked in extension -partial weight bearing LLE # Chronic diastolic congestive heart failure. -echocardiogram demonstrating ejection fraction 60-65%, [id number] mitral regurgitation, RVSP of 44 -restart Lasix, resumed ACEi but at lower dose # Acute blood loss anemia. -s/p transfusion # Hypotension. -resolved # Metabolic acidosis. # Encephalopathy. -resolved, multifactorial from the above # Sore throat. -no further complaints # hyponatremia. -most recent Na of 131 -will have monitored # Morbid obesity. BMI of 42 # [place] -does best w a microphone when talking w her Diet. Regular Prophylaxis. High risk patient, eliquis 5 bid Code. Full Disposition. discharge rehab in [place], went to meet kaylen Zavala and she is wanting to only go to a swing bed within the hospital, CM spoke w them and plan is for rehab. I spoke with the attending physician at the rehab facility to update him on her. His name is Dr Del Valle [phone]. Will have her PICC removed in the morning prior to dc. Will evaluate her labs to assure stability prior to transfer. Plan is for dc first thing in the morning if cont to be stable. Subjective: Lucas is upset and wanting to be placed in the hospital in [place], not c/o pain Objective: Vital Signs Temp Pulse Resp BP Pulse Ox 36.8 C 88 18 153/83 H 98 02/16/18 07:11 02/16/18 07:11 02/16/18 07:11 02/16/18 07:11 02/16/18 07:11 Laboratory Results 02/15/18 04:25 02/15/18 04:25 02/15/18 02/16/18 02/17/18 05:59 05:59 05:59 Intake Total 500 900 Output Total 2475 2100 370 Balance -1974 -1200 -370 PT 15.9 SEC (12.0-15.0) H 02/12/18 18:30 INR 1.25 (0.83-1.16) H 02/12/18 18:30 - Physical Exam Constitutional: chronically ill appearing, obese, uncomfortable Eyes: anicteric sclera Ears, Nose, Mouth, Throat: hard of hearing Cardiovascular: regular rate and rhythym, edema (left leg and significant swelling in left calf) Respiratory: no respiratory distress, no rales or rhonchi, reduced air movement Gastrointestinal: normoactive bowel sounds Skin: warm, No normal color (pale) Musculoskeletal: generalized weakness Neurologic: AAOx3 Psychiatric: anxious ICD10 Worksheet Patient Problems: Problems Problem Status Onset Atrial fibrillation Acute Effie-prosthetic femoral shaft fracture Acute
--- NOTE | 2018-02-16 10:27 | PDIAF ---
- Diagnosis Diagnosis: Left knee periprosthetic fracture, patellar tendon avulsion Code Status: Full Code - Medication Management Discharge Medications: Medications to Continue on Transfer Acetaminophen [Tylenol 325mg (*)] 650 mg PO Q4HRS PRN 02/12/18 [Last Taken Unknown] Docusate Sodium [Colace 100 MG (*)] 100 mg PO BID 02/12/18 [Last Taken Unknown] Furosemide [Lasix 40 MG (*)] 40 mg PO DAILY 02/12/18 [Last Taken Unknown] Lisinopril [Zestril 40 mg (*)] 40 mg PO DAILY 02/12/18 [Last Taken Unknown] Magnesium Hydroxide [Milk of Magnesia] 30 ml PO BID PRN 02/12/18 [Last Taken Unknown] Metoprolol Succinate Xr [Toprol Xl 25 mg (*)] 25 mg PO DAILY 02/12/18 [Last Taken Unknown] Simethicone [Gas Relief] 80 mg PO QID PRN 02/12/18 [Last Taken Unknown] traMADol [Ultram 50 mg (*)] 50 mg PO Q6HRS PRN 02/12/18 [Last Taken Unknown] Acetaminophen [Tylenol 325mg (*)] 650 mg PO Q6HRS tab 02/16/18 [Last Taken Unknown] Apixaban [Eliquis] 5 mg PO BID tab 02/16/18 [Last Taken Unknown] Famotidine [Pepcid 20 MG (*)] 20 mg PO BID tab 02/16/18 [Last Taken Unknown] Lisinopril [Zestril 10 mg (*)] 10 mg PO DAILY tab 02/16/18 [Last Taken Unknown] Tapentadol HCl [Nucynta 50 MG (*)] 50 mg PO Q4HRS PRN tab 02/16/18 [Last Taken Unknown] traMADol [Ultram 50 mg (*)] 25 mg PO Q6HRS tab 02/16/18 [Last Taken Unknown] Discharge Medications: Refer to the Discharge Home Medication list for PRN reason. - Orders Diet Recommendation: no restrictions on diet Diet Texture: Regular Texture Diet, Thin Liquids, Meds Whole w/Liquids Wound Care Instructions: Keep wound clean and dry. Sutures to be removed 2 weeks post op Activity/Weight Bearing Restrictions: PWB in T-scope brace locked in extension Additional Instructions: Patient is to continue T-scope brace locked in extension. No flexion of knee PWB LLE with brace locked in extension. - Follow Up Care Current Providers and Referrals: NONE *PRIMARY CARE P,. [Primary Care Provider] - Janet Rinaldi MD [Medical Doctor] -
[2018-02-16] MEDS: LISINOPRIL 10 MG TAB PO SCH (12:59)
--- NOTE | 2018-02-16 14:57 | SOAPPROG ---
SOAP Progress Note Assessment/Plan: Assessment: Plan: Subjective: states her leg feels better but still remains swollen dressing C&D with foot NVI plan for transfer tomorrow Objective: Vital Signs Temp Pulse Resp BP Pulse Ox 36.8 C 88 18 100/77 98 02/16/18 07:11 02/16/18 07:11 02/16/18 07:11 02/16/18 12:59 02/16/18 07:11 Laboratory Results 02/15/18 04:25 02/15/18 04:25 02/15/18 02/16/18 02/17/18 05:59 05:59 05:59 Intake Total 500 900 Output Total 2475 2100 370 Balance -1974 -1200 -370 PT 15.9 SEC (12.0-15.0) H 02/12/18 18:30 INR 1.25 (0.83-1.16) H 02/12/18 18:30 ICD10 Worksheet Patient Problems: Problems Problem Status Onset Atrial fibrillation Acute Effie-prosthetic femoral shaft fracture Acute - ICD10 Problem Qualifiers (1) Effie-prosthetic femoral shaft fracture
--- NOTE | 2018-02-16 15:54 | ASMTCMCOM ---
CM Note CM Note Notes: Pt will d/c to [facility] in [place], they need pt there by 1400 and everything could not get coordinated today for her transfer. Pt was initially upset about a d/c to [facility], she thought she would go back to [facility]. Before pt got to [facility] had no bed availability. Pt son El and [place] CM Kathryn spoke with pt and informed her the plan was always to get her to the SNF and now that they have bed availability it is the most appropriate level of care. Hospitalist Kal called Dr. Morris and completed doc to doc. With doc to doc completed, PATRICK Peralta [phone] was able to schedule ambulance pickup for pt for 10:00 tomorrow. Pt picc will need to be removed. CM to follow. Date Signed: 02/16/2018 03:53 PM Electronically Signed By:KARL Manzano
[2018-02-17] MEDS: traMADol 50 MG TAB PO SCH ×2 (00:08→06:19)
[2018-02-17] MEDS: ACETAMINOPHEN 325 MG TAB PO SCH ×2 (00:08→06:19)
[2018-02-17 04:54] LABS: PLATELET COUNT 264 10^3/uL (150-400)
[2018-02-17 07:58] VITALS: BP 150/69
[2018-02-17] MEDS: LISINOPRIL 10 MG TAB PO SCH (07:59)
[2018-02-17] MEDS: DOCUSATE SODIUM 100 MG CAP PO SCH (07:59)
[2018-02-17] MEDS: METOPROLOL SUCCINATE XR 25 MG TAB PO SCH (07:59)
[2018-02-17] MEDS: APIXABAN 5 MG TAB PO SCH (07:59)
[2018-02-17] MEDS: FAMOTIDINE 20 MG TAB PO SCH (08:00)
[2018-02-17] MEDS: SENNOSIDES/DOCUSATE SODIUM TAB PO SCH (08:00)
[2018-02-17] MEDS: TAPENTADOL HCL 50 MG TAB PO PRN (08:02)
--- NOTE | 2018-02-17 08:23 | HOSPPROG ---
Hospitalist Progress Note Assessment/Plan: Patient is an 83-year-old female presents for fracture adjacent to prosthesis of recently repaired knee complicated by atrial fibrillation with acute rapid ventricular response, LLL DVT. # DVT. Acute, unclear whether this was POA -patient had his first knee surgery in [place] and 2nd one at [facility] -Eliquis 5 mg bid -not started on 10 mg dosing due to tissue bleeding -swelling is quite significant/ xiao hose applied, elevation # Atrial fibrillation w RVR on admission -metoprolol and on oral anticoagulation -starting anticoagulation now 2/2 DVT # Femur fracture -Postop day 5 status post hinge distal femur replacement with patellar tendon repair -Dr Rinaldi will be seeing her in the OP setting -remain in T-scope brace locked in extension -partial weight bearing LLE # Chronic diastolic congestive heart failure. -echocardiogram demonstrating ejection fraction 60-65%, [id number] mitral regurgitation, RVSP of 44 -restart Lasix, resumed ACEi but at lower dose # Acute blood loss anemia. -s/p transfusion # Hypotension. -resolved # Metabolic acidosis. # Encephalopathy. -resolved, multifactorial from the above # Sore throat. -no further complaints # hyponatremia. -most recent Na of 131 -will have monitored # Morbid obesity. BMI of 42 # HUGHES -does best w a microphone when talking w her Diet. Regular Prophylaxis. High risk patient, eliquis 5 bid Code. Full Disposition.dc to [place], picc line removal Subjective: Lucas is wishing she could go to the hospital in [place], has no specific complaints. Objective: Vital Signs Temp Pulse Resp BP Pulse Ox 37.0 C 77 16 150/69 H 96 02/17/18 07:53 02/17/18 07:53 02/17/18 07:53 02/17/18 07:53 02/17/18 07:53 Laboratory Results 02/17/18 04:30 02/17/18 04:30 02/16/18 02/17/18 02/18/18 05:59 05:59 05:59 Intake Total 900 1200 Output Total 2100 870 Balance -1200 330 PT 15.9 SEC (12.0-15.0) H 02/12/18 18:30 INR 1.25 (0.83-1.16) H 02/12/18 18:30 - Physical Exam Constitutional: chronically ill appearing, obese, uncomfortable Ears, Nose, Mouth, Throat: hard of hearing Cardiovascular: regular rate and rhythym Respiratory: no respiratory distress, reduced air movement Gastrointestinal: normoactive bowel sounds Skin: other (mulitple skin tears, bruising left foot area, right foreram area) Musculoskeletal: generalized weakness Neurologic: AAOx3 Psychiatric: anxious ICD10 Worksheet Patient Problems: Problems Problem Status Onset Atrial fibrillation Acute Effie-prosthetic femoral shaft fracture Acute
--- NOTE | 2018-02-17 08:31 | PDIAF ---
- Diagnosis Diagnosis: Left knee periprosthetic fracture, patellar tendon avulsion Code Status: Full Code - Medication Management Discharge Medications: Medications to Continue on Transfer Acetaminophen [Tylenol 325mg (*)] 650 mg PO Q4HRS PRN 02/12/18 [Last Taken Unknown] Docusate Sodium [Colace 100 MG (*)] 100 mg PO BID 02/12/18 [Last Taken Unknown] Furosemide [Lasix 40 MG (*)] 40 mg PO DAILY 02/12/18 [Last Taken Unknown] Magnesium Hydroxide [Milk of Magnesia] 30 ml PO BID PRN 02/12/18 [Last Taken Unknown] Metoprolol Succinate Xr [Toprol Xl 25 mg (*)] 25 mg PO DAILY 02/12/18 [Last Taken Unknown] Simethicone [Gas Relief] 80 mg PO QID PRN 02/12/18 [Last Taken Unknown] traMADol [Ultram 50 mg (*)] 50 mg PO Q6HRS PRN 02/12/18 [Last Taken Unknown] Acetaminophen [Tylenol 325mg (*)] 650 mg PO Q6HRS tab 02/16/18 [Last Taken Unknown] Apixaban [Eliquis] 5 mg PO BID tab 02/16/18 [Last Taken Unknown] Famotidine [Pepcid 20 MG (*)] 20 mg PO BID tab 02/16/18 [Last Taken Unknown] Lisinopril [Zestril 10 mg (*)] 10 mg PO DAILY tab 02/16/18 [Last Taken Unknown] Tapentadol HCl [Nucynta 50 MG (*)] 50 mg PO Q4HRS PRN tab 02/16/18 [Last Taken Unknown] Discharge Medications: Refer to the Discharge Home Medication list for PRN reason. - Orders Services needed: Physical Therapy, Occupational Therapy Diet Recommendation: no restrictions on diet Diet Texture: Regular Texture Diet, Thin Liquids, Meds Whole w/Liquids Wound Care Instructions: Keep wound clean and dry. Sutures to be removed 2 weeks post op Activity/Weight Bearing Restrictions: PWB in T-scope brace locked in extension Additional Instructions: Patient is to continue T-scope brace locked in extension. No flexion of knee PWB LLE with brace locked in extension. Please note lisinopril dose has been decreased to 10 mg from 40 mg she will need wound care for multiple skin tears - Labs/Radiology BMP Date: 02/18/18 (weekly) HCT/HGB Date: 02/18/18 (weekly) - Follow Up Care Current Providers and Referrals: NONE *PRIMARY CARE P,. [Primary Care Provider] - Janet Rinaldi MD [Medical Doctor] -
--- NOTE | 2018-02-17 10:00 | GDS ---
[f rep st] DISCHARGE SUMMARY DISCHARGE DIAGNOSES: 1. Acute deep vein thrombosis. 2. Atrial fibrillation with rapid ventricular response. 3. Femur fracture. 4. Chronic diastolic congestive heart failure. 5. Acute blood loss anemia. 6. Hypertension. 7. Metabolic acidosis. 8. Acute encephalopathy. 9. Sore throat. 10. Hyponatremia. 11. Morbid obesity with a BMI of 42. 12. Severely hard of hearing. CONSULTATION: Dr. Janet Rinaldi. HISTORY OF PRESENT ILLNESS: Briefly, the patient is an 83-year-old woman with hypertension, obesity, likely atrial fibrillation, obstructive sleep apnea, who underwent a total knee arthroplasty on February 01 in [place], [place], where she lives. She has been hospitalized since then. At some point, she sustained a fall, was unable to bear weight. She was found to have a transverse distal femur fracture proximal to the knee arthroplasty and she was transferred to [facility] for further surgery. She was noted to be in atrial fibrillation. She had an echocardiogram performed prior to surgery for evaluation. This showed an EF of 60% to 65% with a mildly dilated right ventricle. Her left atrium is mildly dilated, as well as the right atrium being mildly dilated. She has lfru-sm-kczprcno MR. She had surgery later on the with Dr. Rinaldi and has been slow to improve. She had a right knee removal of hardware with hinge distal femoral replacement, as well as a patellar tendon repair. On the day after surgery, she had an ultrasound performed because of ongoing swelling to the leg. This showed a DVT in 1 of the paired left posterior tibial veins in the calf. She was started on Eliquis. Today, she will be discharged back to rehab in the [place], [place] area. I have spoken to the receiving doctor there and I have reviewed her history with him. HOSPITAL COURSE PER PROBLEM: 1. Deep vein thrombosis. It is unclear whether this was present on admission or if this occurred at [facility]. At this time, she is on Eliquis 5 mg p.o. twice daily. She was not started on the initial dose of 10 mg because of significant bleeding. 2. Atrial fibrillation with RVR. She is on anticoagulation, as well as metoprolol. 3. Femur fracture. She is postop day #5, post hinge distal femur placement with patellar tendon repair. She will remain in the T-scope brace locked in extension. She can be partial weightbearing to her left lower extremity. 4. Chronic diastolic congestive heart failure. She appears to be euvolemic. Her Lasix has been restarted. Of note, her RAMÍREZ-Inhibitor dose was decreased due to episodes of hypotension. She may need this dose increased over time. 5. Acute blood loss anemia, transfused. 6. Hypotension, resolved. 7. Metabolic acidosis, improved. 8. Acute encephalopathy, resolved. 9. Sore throat. This was likely secondary to the endotracheal intubation, resolved. 10. Hyponatremia. Sodium is 135. 11. Morbid obesity. She has a BMI of 42. 12. Hard of hearing. She does best if you talk to her left ear and use a microphone. DISCHARGE CONDITION: Stable. Blood pressure is 150/69, heart rate is 77, respiratory rate of 16, O2 SATs on 2 L are 96%, temperature 37 degrees Celsius. DISCHARGE MEDICATIONS: Medications at discharge, please see the MAR. She has had a few changes in her home medications. DISCHARGE INSTRUCTIONS: 1. To wear the brace locked in extension, no flexion of knee. She can be partial weightbearing with a left lower extremity brace locked in extension. 2. To note, lisinopril dose is now 10 mg, was at 40 mg. 3. She has multiple skin tears and will need a wound care nurse to monitor. Greater than 30 minutes discharging and coordinating the patient's care. /[id number]/MODL MTDD
--- NOTE | 2018-02-17 10:35 | ASMTCMCOM ---
CM Note CM Note Notes: Pt medically stable for d/c to [facility]. Orders sent in Allcripts. RN Laurence called report. Ambulance transport arrived at 10:00, PCS copy in chart. Caroline in admissions updated pt leaving. Date Signed: 02/17/2018 10:35 AM Electronically Signed By:KARL Manzano
--- NOTE | 2018-02-17 11:24 | ASMTLACE ---
LACE Length of stay for Answers: 4-6 days current admission Acuity / Level of Answers: Yes Care: Did the patient have an inpatient admission? Comorbidities - select Answers: Congestive heart failure all that apply Coronary Artery Disease Diabetes (uncontrolled or controlled) Other Notes: Obesity, HTN, Afib, HAO , T KA # of Emergency department Answers: 0 visits in the last 6 months Score: 13 Date Signed: 02/17/2018 11:23 AM Electronically Signed By:KARL Manzano
--- NOTE | 2018-02-18 12:19 | ASDISCHSUM ---
Discharge Information Plan Status:SNF Medically Cleared to Leave: Discharge Date:02/17/2018 10:24 AM CM D/C Disposition:Longterm Facility ADT D/C Disposition:Longterm Facility Projected Discharge Date:02/16/2018 11:00 AM Transportation at D/C:ALS/BLS Discharge Delay Reason: Follow-Up Date:02/16/2018 11:00 AM Discharge Slot: Final Diagnosis:Fall: Transverse distal femur fx proximal to TKA Placement Information Referral Type:*Fdc/SNF Referral ID:[id number] Provider Name:[facility] Address 1:[address] Address 2: City:[place] Selection Factors: State:[place] Patient Contact Information Contact Name:JESSICA Relationship:Son Address:[address] [place] Alternate Phone: State/Zip Code:[place] [address] Email: Financial Information Financial Class:Medicare Primary Plan Desc:MEDICARE INPATIENT Primary Plan Number:[id number] Secondary Plan Desc:AARP/MDR SUPPLEMENT Secondary Plan Number:[id number] Assessment Information [facility] CM Progress Note CM Note CM Note Notes: 83yr old female admitted after a fall and recent TKA: Transverse distal femur fx proximal to TKA, Encephalopathy, CHF. She has a Hx of HTN, Obesity, Afib, HAO, OA. Patient lives in [place], [place]. Has a son in [place]. Non wt bearing on knee, therapies recommending SNF rehab. Date Signed: 02/14/2018 11:22 AM Electronically Signed By:Aga Meneses LCSW LACE ENRIQUE Length of stay for Answers: 4-6 days current admission Acuity / Level of Answers: Yes Care: Did the patient have an inpatient admission? Comorbidities - select Answers: Congestive heart failure all that apply Coronary Artery Disease Diabetes (uncontrolled or controlled) Other Notes: Obesity, HTN, Afib, HAO , T KA # of Emergency department Answers: 0 visits in the last 6 months Score: 13 Date Signed: 02/17/2018 11:23 AM Electronically Signed By:KARL Manzano [facility] CM Progress Note CM Note CM Note Notes: Spoke to numerous family members and gave them Medicare [facility] info. They are thinking that she will return to the Swing Bed Unit at the hospital in [place], [place]. Sent a referral to Nikole, Admissions [phone]. Date Signed: 02/14/2018 04:28 PM Electronically Signed By:Aga Meneses LCSW [facility] CM Progress Note CM Note CM Note Notes: Per hospitalist, pt will be ready for d/c tomorrow. Spoke with Kathryn at [facility] [phone] - the plan is still for pt to return to their SNF swing bed. She will also assist with arranging ambulance transport. She requested clinical info be faxed to [facility] where pt will be admitted. Referral faxed. Date Signed: 02/15/2018 02:27 PM Electronically Signed By:KARL Mendoza [facility] PATRICK Progress Note CM Note CM Note Notes: Pt will d/c to [facility] in [place], they need pt there by 1400 and everything could not get coordinated today for her transfer. Pt was initially upset about a d/c to [facility], she thought she would go back to [facility]. Before pt got to [facility] had no bed availability. Pt son El and [place] PATRICK Peralta spoke with pt and informed her the plan was always to get her to the SNF and now that they have bed availability it is the most appropriate level of care. Hospitalist Kal called Dr. Morris and completed doc to doc. With doc to doc completed, PATRICK Peralta [phone] was able to schedule ambulance pickup for pt for 10:00 tomorrow. Pt picc will need to be removed. CM to follow. Date Signed: 02/16/2018 03:53 PM Electronically Signed By:KARL Manzano [facility] PATRICK Progress Note PATRICK Gant CM Note Notes: Pt medically stable for d/c to [facility]. Orders sent in Allcripts. JOHNNA Dang called report. Ambulance transport arrived at 10:00, PCS copy in chart. Caroline in admissions updated pt leaving. Date Signed: 02/17/2018 10:35 AM Electronically Signed By:KARL Manzano Intervention Information Intervention Type:*IM-Signed Date of Service:02/16/2018 11:31 AM Patient Type:Inpatient Staff Member:Kristie Maki Hours: Discipline: Severity: Comment:
== END 2018-02-17 10:24 | DRG 469 ==
LOC: F3N 10:52 → F2N 20:59 → F3N 02-13 15:14
PROVIDERS: ADMIT Orthopaedic Surgery; ATTEND Orthopaedic Surgery
PROC: 30233N1 Transfusion of Nonautologous Red Blood Cells into Peripheral Vein, Percutaneous Approach (ICD-10-PCS; 2018-02-12)
PROC: 0LQR0ZZ Repair Left Knee Tendon, Open Approach (ICD-10-PCS; principal; 2018-02-12 14:30)
PROC: 0SRD0J9 Replacement of Left Knee Joint with Synthetic Substitute, Cemented, Open Approach (ICD-10-PCS; principal; 2018-02-12 14:30)
PROC: 02HV33Z Insertion of Infusion Device into Superior Vena Cava, Percutaneous Approach (ICD-10-PCS; 2018-02-14)
DX: M97.12XA Periprosthetic fracture around internal prosthetic left knee joint, initial encounter (principal); G93.41 Metabolic encephalopathy; I82.442 Acute embolism and thrombosis of left tibial vein; E87.1 Hypo-osmolality and hyponatremia; Z68.41 Body mass index [BMI] 40.0-44.9, adult; D62 Acute posthemorrhagic anemia; E87.2 Acidosis; I11.0 Hypertensive heart disease with heart failure; I50.32 Chronic diastolic (congestive) heart failure; J02.9 Acute pharyngitis, unspecified; I48.91 Unspecified atrial fibrillation; E66.01 Morbid (severe) obesity due to excess calories; H91.8X9 Other specified hearing loss, unspecified ear; G47.33 Obstructive sleep apnea (adult) (pediatric); W19.XXXA Unspecified fall, initial encounter
CPT/HCPCS: 92610-GN; 97110-GP; 97163-GP; 97166-GO; 97530-GO; 97530-GP; 97535-GO; C1713; C1751; G8978-GP-CM; G8979-GP-CJ; G8987-GO-CM; G8988-GO-CK; G8996-GN-CI; G8997-GN-CI; G8998-GN-CI; J0171; J0690; J1100; J1170; J1650; J1885; J2060; J2270; J2405; J2550; J2704; J2795; J3010; P9016; P9041; Q9967